=== PATIENT | male | born 1985 | race Two or more races ===

== ENCOUNTER 2019-07-08 01:30 | Emergency (ER) | payer OTHER ==
[~2019-07-08] VITALS: Ht 170.2 cm; Wt 74.8 kg
== END 2019-07-08 11:07 | disposition designated cancer center or children's hospital (05) ==
LOC: ER 01:30
DX: S02.2XXA Fracture of nasal bones, initial encounter for closed fracture (principal); Y08.89XA Assault by other specified means, initial encounter; Y93.89 Activity, other specified; Y92.89 Other specified places as the place of occurrence of the external cause; Y99.8 Other external cause status